=== PATIENT | female | born 1985 | race Caucasian/White ===

== ENCOUNTER → 2021-09-26 10:09 | Outpatient (CLI) | payer BC, SELFPAY | LOC: SL 10:19 | PROVIDERS: PCP Family Medicine; Visit Provider Family Medicine | DX: R53.83 Other fatigue (principal); G47.10 Hypersomnia, unspecified; R06.83 Snoring | CPT/HCPCS: G0399 ==

== ENCOUNTER → 2021-11-11 13:00 | Outpatient (CLI) | payer BC, SELFPAY | PROVIDERS: Visit Provider Specialist | DX: G47.10 Hypersomnia, unspecified (principal) | CPT/HCPCS: 36415 ==

== ENCOUNTER → 2022-02-07 20:42 | Outpatient (CLI) | payer BC, SELFPAY | PROVIDERS: PCP Family Medicine; Visit Provider Specialist | DX: G47.30 Sleep apnea, unspecified (principal); G47.9 Sleep disorder, unspecified; R06.83 Snoring | CPT/HCPCS: 95810 ==

== ENCOUNTER → 2023-06-21 09:34 | Outpatient (CLI) | payer BC, SELFPAY ==
--- NOTE | 2023-06-21 09:38 | US_ITS ---
PROCEDURE: US TRANSVAGINAL CLINICAL INDICATION: abnormal uterine bleeding COMPARISON: No exams were available for comparison FINDINGS: Transvaginal sonographic images of the pelvis were obtained. UTERUS: 7.3 cm x 5.0 cmx 3.5 cm with a combined endometrial thickness of 2.7mm. There are several nabothian cysts. The largest measures 0.88 cm. There is a posterior hyperechoic lesion in the fundal myometrium measuring 0.4 cm x 0.4 cm. Possibly a calcified fibroid. The myometrium is heterogenous. LEFT OVARY: 2.4 cmx1.7 cmx1.4cm with a volume of 3ml. RIGHT OVARY: 2.5 cm x 1.9 cmx1.8 cm with a volume of 4.4ml. There is a follicle measuring 1.1 cm x 1.1 cm x 1.1 cm. Both ovaries are seen and appear normal. Doppler flow to both ovaries are seen. There is no fluid in the cul-de-sac. IMPRESSION: 1. Anteverted uterus normal in shape and size. 2. The endometrium is thin. 3. Both ovaries are seen and appear normal. 4. No fluid in the cul-de-sac. Dictated by: Fabio Paiz MD 06/21/2023 14:20 Fabio Paiz MD in OV 06/21/2023 14:20
== END ==
LOC: RAD 09:35
PROVIDERS: PCP Family Medicine; Visit Provider Obstetrics & Gynecology
DX: N93.9 Abnormal uterine and vaginal bleeding, unspecified (principal)
CPT/HCPCS: 76830

== ENCOUNTER → 2023-07-03 16:28 | Outpatient (CLI) | payer BC, SELFPAY ==
[2023-07-03 16:19] LABS: Microscopic, Urine URINE MICROSCOPIC (MICROSCOPIC)
[2023-07-03 16:46] LABS: Appearance,Urine CLEAR (Clear); Bilirubin,Urine Negative (Negative); Blood, Urine 1+ (Negative); Color,Urine YELLOW (Yellow); Glucose,Urine (UA) Negative (Negative); Ketones,Urine Negative (Negative); Leukocyte Esterase,Urine Negative (Negative); Nitrate,Urine Negative (Negative); Protein,Urine Negative (Negative); Specific Gravity, Urine >= 1.030 (1.005-1.030); Urobilinogen,Urine 0.2 EU/dl (0.2)
[2023-07-03 16:54] LABS: RBC,Urine Occasional #/hpf (0-3); Squamous Epithelial Cell,Urine Occasional #/hpf (0-5); WBC,Urine Occasional #/hpf (0-3)
== END ==
PROVIDERS: PCP Family Medicine; Visit Provider Obstetrics & Gynecology
DX: R31.9 Hematuria, unspecified (principal)
CPT/HCPCS: 81001

== ENCOUNTER 2023-09-06 11:02 | Outpatient (CLI) | payer BC, SELFPAY ==
[2023-09-06 11:42] LABS: Basophils % 0.7 % (0.1-2.0); Eosinophils # 0.1 K/mm3 (0.0-0.4); Eosinophils % 2.2 % (0.1-12.0); Hematocrit 41.5 % (37.0-47.0); Hemoglobin 13.8 g/dL (12.2-16.2); Lymphocytes # 2.7 K/mm3 (0.7-4.5); Mean Corpuscular HGB Conc 33.2 g/dL (31.8-35.4); Mean Corpuscular Volume 96.2 fl (81-99); Mean Platelet Volume 7.7 fl (7.4-10.4); Monocytes # 0.3 K/mm3 (0.1-1.0); Monocytes % 4.7 % (1.7-9.3); Neutrophils # 2.8 K/mm3 (1.8-7.8); Neutrophils % 46.3 % (37.0-80.0); Platelet Count 276 K/mm3 (142-424); Red Blood Count 4.31 M/mm3 (4.20-5.40); Red Cell Distribution Width 12.7 % (11.5-17.5)
[2023-09-06 12:01] LABS: Chloride 104 mmol/L (98-107)
[2023-09-06 12:02] LABS: Sodium 141 mmol/L (136-145)
[2023-09-06 12:04] LABS: Alanine Aminotransferase 22 U/L (12-78); Aspartate Amino Transferase 26 U/L (14-36); Blood Urea Nitrogen 13 mg/dl (7-17); Estimated Glomerular Filt Rate 94 ml/min (>60); GFR (African American) 113 ML/MIN (>60)
[2023-09-06 12:05] LABS: Albumin Level 4.3 g/dl (3.5-5.0); Albumin/Globulin Ratio 1.7 (1.1-1.8); Alkaline Phosphatase 55 U/L (38-126); Bilirubin,Total 0.6 mg/dl (0.2-1.3); Calcium 8.7 mg/dl (8.4-10.2); Carbon Dioxide 32 mmol/L (22.0-30.0); Globulin 2.6 g/dL (1.3-3.2); Glucose 106 mg/dl (74-100); Total Protein,Serum 6.9 g/dl (6.3-8.2)
[2023-09-06 12:44] LABS: HCG,Quantitative < 2 mIU/ml (0-5.42)
== END 2023-09-06 23:59 ==
LOC: LAB 11:02
PROVIDERS: PCP Family Medicine; Visit Provider Obstetrics & Gynecology
DX: N92.0 Excessive and frequent menstruation with regular cycle (principal); N93.9 Abnormal uterine and vaginal bleeding, unspecified
CPT/HCPCS: 36415; 80053; 84702; 85025

== ENCOUNTER 2023-09-12 06:40 | Observation (INO) | payer BC, SELFPAY ==
[2023-09-11 16:37] VITALS: BMI 25.7
[2023-09-12] VITALS (26 sets, daily range): BP systolic 107–130; BP diastolic 65–85; PULSE 63–98; RESP 15–22; TEMP 36.1–43; O2SAT 93–100
[2023-09-12] MEDS: LACTATED RINGERS 1000ML 1,000 ML 100 ML IV (06:21)
--- NOTE | 2023-09-12 07:12 | EXP.ANES.CKL ---
[facility] Disclaimer: The information contained in this section may have been updated after the patient was seen, as this information can be updated by other users. Medical History Abnormal uterine bleeding (AUB) Hypersomnia Narcolepsy Surgical History History of endometrial ablation Hx of cone biopsy of cervix Hx of dilation and curettage Hx of tubal ligation Family History Mother Cancer Ovarian Other Alcoholism Coronary artery disease Diabetes Hypertension Stroke Social History Smoking Status: Current every day smoker tobacco type: cigarettes and e-cigarettes alcohol intake: never substance use type: denies use current occupational status: employed Travel in the last 8 weeks: None household members: spouse [facility] Anesthesia Checklist Patient Identification Patient Identification: Arm Band and Family Structural Data Admitted From: Home Planned Operative Procedure/s: TVH wih bilateral Salpingectmy Consent for Planned Operative Procedure(s) Verified: Yes Verified Documents: Surgical Consent and History and Physical NPO Status Verified Time NPO: 00:00 Additional verifications Patient : No Anesthesia Reactions: No Hx Blood Transfusions: No Blood Transfusion Reaction: No Cephalosporin Allergy: No Previous Colonoscopy: No Airway Assessment Mallampati Score:: Class III C-Spine Mobility Assessed: Yes TMJ Mobility Assessed: Yes Dentition: Poor Dentition Neurological Assessment Level of Consciousness: Awake, Alert, Appropriate and Follows Commands Hx Seizures: No Numbness or tingling in extremities: No Anesthesia Plan Anesthesia Risk discussed: Yes ASA Class: II Anesthesia Type: General Preoperative Comments Pre-Operative Comments: Narcolepsy Rx Aderal, Wakax, and Rtalin. Otherwise healthy.
[2023-09-12] MEDS: CEFAZOLIN SODIUM 1 GM in 0.9 % SODIUM CHLORIDE 50 ML IV (07:25)
--- NOTE | 2023-09-12 07:25 | EXP.HP ---
History of Present Illness *Admission Date: 09/12/23 *Reason for visit:: hysterectomy *History of present illness: Kim Matias is a 37yo () presenting today for total vaginal hysterectomy, Ospina culdoplasty, bilateral salpingectomy, and cystoscopy. -s/p ablation (2014), tubal, cold knife cone, D&C, and wisdom teeth extraction -Reviewed Pap smear 06/14/2023: NILM, satisfactory, negative HPV -Pt is concerned about her narcolepsy diagnosis - discussed with anesthesia -Continues to have menses twice a month. Reports it is heavy and painful. [facility] Disclaimer: The information contained in this section may have been updated after the patient was seen, as this information can be updated by other users. Medical History (Updated 09/12/23 @ 07:27 by Shantelle Kathleen DO) Abnormal uterine bleeding (AUB) Hypersomnia Narcolepsy Surgical History History of endometrial ablation Hx of cone biopsy of cervix Hx of dilation and curettage Hx of tubal ligation Family History Mother Cancer Ovarian Other Alcoholism Coronary artery disease Diabetes Hypertension Stroke Social History Smoking Status: Current every day smoker tobacco type: cigarettes and e-cigarettes alcohol intake: never substance use type: denies use current occupational status: employed Travel in the last 8 weeks: None household members: spouse Review of Systems Review of Systems Review of systems (narrative): Const: Denies headaches, fever/chills, weakness Eyes: Denies change in vision Cardiorespiratory: Denies chest pain, shortness of breath, and cough GI: Denies abdominal pain, change in BM, nausea, vomiting, constipation, diarrhea : + AUB and pelvic pain; denies genital lesions, vaginal itching and odor; denies leakage of urine, urinary urgency, frequency, dysuria and hematuria Denies depression and anxiety Denies change in libido Meds Home Medications and Allergies Home Medications Medication Instructions Recorded Confirmed Type dextroamphetamine-amphetamine 10 10 mg PO DAILY 06/12/23 09/12/23 History mg tablet dextroamphetamine-amphetamine ER 20 mg PO DAILY 06/12/23 09/12/23 History 20 mg 24hr capsule,extend release methylphenidate HCl 20 mg tablet 20 mg PO DAILY 06/12/23 09/12/23 History pitolisant 17.8 mg tablet (Wakix) 35.6 mg PO DAILY 06/12/23 09/12/23 History New Prescriptions to Start Prescriptions: Allergies Allergy/AdvReac Type Severity Reaction Status Date / Time kiwi Allergy Severe Swelling Verified 09/12/23 06:20 of Lip/Tongue/Throat Exam Data for Last 24 hours Vital signs and Labs for Last 24 Hours: Temp Pulse Resp BP Pulse Ox O2 Del Method 97.0 F L 88 18 121/75 99 Room Air 09/12/23 06:22 09/12/23 06:22 09/12/23 06:22 09/12/23 06:22 09/12/23 06:22 09/12/23 06:22 I & O for Last 24 hours: Intake & Output 09/09/23 09/10/23 09/11/23 09/12/23 23:59 23:59 23:59 23:59 Weight 164 lb Constitutional Constitutional: no acute distress *Routine HEENT Exam Head: Present normocephalic Eye: Present EOMI and PERRL ENT: Present mucous membranes moist *Routine Neck Exam Neck: Present supple; Absent lymphadenopathy *Routine Respiratory Exam Respiratory: Present CTA bilaterally *Routine Cardiovascular Exam Cardiovascular: Present RRR *Routine Abdominal Exam Abdominal: Present soft and normoactive bowel sounds; Absent tenderness *Routine Rectal Exam Rectal:: deferred *Routine Genitalia Exam Genitalia:: deferred *Routine Extremities Exam Extremities: Absent cyanosis, clubbing or edema *Routine Skin Exam Skin: Present warm; Absent rash *Routine Neurological Exam Neurological: Present alert and oriented X3 Assessment and Plan *Assessment and plan (1) Abnormal uterine bleeding (AUB): Status: Acute Category: Medical Code(s): N93.9 - Abnormal uterine and vaginal bleeding, unspecified (2) History of endometrial ablation: Status: Acute Category: Surgical Code(s): Z98.890 - Other specified postprocedural states (3) Menorrhagia: Status: Acute Qualifiers: Menorrhagia type: with irregular cycle Qualified Code(s): N92.1 - Excessive and frequent menstruation with irregular cycle Category: Medical Code(s): N92.0 - Excessive and frequent menstruation with regular cycle (4) Narcolepsy: Status: Chronic Category: Medical Code(s): G47.419 - Narcolepsy without cataplexy (5) Pelvic pain: Status: Acute Category: Medical Code(s): R10.2 - Pelvic and perineal pain Plan #Abnormal uterine bleeding #Menorrhagia #Pelvic pain #Status post endometrial ablation #History of hemorrhagic ovarian cyst -Scheduled for total vaginal hysterectomy, Ospina culdoplasty, bilateral salpingectomy, and cystoscopy. Possible total abdominal hysterectomy. -CBC, test, type and screen ordered -TVUS: Uterus: 7.3 x 5.0 x 3.5 cm. The endometrium measures 2.7 mm. Possible calcified fibroid measuring half a centimeter in the posterior endomyometrium Ovaries: The right ovary measure 2.5 x 1.9 x 1.8 cm. Volume: 4.4 mL with a 1 cm follicle. The left ovary measure 2.4 x 1.7 x 1.4 cm. With a volume of 3 mL. All no evidence of adnexal mass or free fluid in the pelvic cavity. -Infection prophylactic antibiotics ordered: Ancef 2g -Risks, benefits, and alternatives of hysterectomy reviewed with the pt. Risks including but not limited to bleeding, infection, and injury to the surrounding structures to include bowel, bladder, ureters, and neurovascular bundles were reviewed with the pt. reviewed the long-term complications of fistula formation. Hemorrhage requiring life saving blood transfusion that carries a risk of viral infection was explained to the pt and she consented to transfusion if deemed medically necessary. -Reviewed with the pt the risk that hysterectomy would not alleviate her pelvic pain. Pt voiced understanding of the risks and consented to hysterectomy. -Postoperative course reviewed with the patient and explained that she should anticipate staying in the hospital 1-2 days until meeting all DC criteria, and pain is well controlled.
[2023-09-12] MEDS: METHYLENE BLUE 0.5% 10ML AMPULE 50 MG IV (07:51)
[2023-09-12] MEDS: LIDOCAINE 1% W/EPI 1:100,000 20ML VIAL 20 ML (07:52)
--- NOTE | 2023-09-12 09:42 | P.PNANES_ITS ---
[facility] Anesthesia Record Part I Anesthesia Record I Intake, IV Amount: 1,200 Hydration: Adequate Estimated blood loss (mL): 150 Urine output (mL): 150 Blood Products used (#): none Blood Pressure: 116/76 SaO2: 95 Pulse Rate: 87 Airway Patency: Patent Respiratory Rate: 16 Temperature: 98.4 F Patient is:: Drowsy and Stable Stable to PACU at:: 09:37
[2023-09-12] MEDS: MEPERIDINE 25MG/ML 1ML SYRINGE 12.5 MG IV ×2 (09:51→10:06)
[2023-09-12] MEDS: MORPHINE 2MG/ML SYRINGE 1 MG IV ×2 (09:56→10:02)
[2023-09-12] MEDS: HYDROMORPHONE 2MG/ML SYRINGE 2 MG IV ×2 (10:12→12:10)
--- NOTE | 2023-09-12 13:15 | EXP.OP.NOTE ---
Date of procedure: 09/12/23 Pre-op Diagnosis:: 1. Abnormal uterine bleeding 2. Menorrhagia 3. Pelvic pain 4. History of endometrial ablation 5. History of hemorrhagic ovarian cyst 6. History of tubal ligation Post-op Diagnosis:: 1. Abnormal uterine bleeding 2. Menorrhagia 3. Pelvic pain 4. History of endometrial ablation 5. History of hemorrhagic ovarian cyst 6. History of tubal ligation Procedure performed:: 1. Total vaginal hysterectomy 2. Right salpingectomy 3. Ospina culdoplasty 4. Repair of incidental cystotomy 5. Cystoscopy Surgeon:: Shantelle Kathleen DO [employer](s):: Fabio Paiz MD PETROLEUM GEOLOGIST:: Other (Jaylan Shannon) Anesthesia: GETA Estimated blood loss (mL): 150 Operative findings:: Uterine EUA was significant for 6wk size uterus with regular borders at the fundus. Grade 3 uterine descent was appreciated. No gross adnexal masses were appreciated. Operative note:: Pt was taken back to the OR where GETA was obtained without difficulty. SCDs were placed and found to be working. The patient was placed in dorsal lithotomy position using yellowfin stirrups. The vagina was prepped and draped in the normal sterile fashion. An in and out catheter was used to drain the bladder and 20 mL of methylene blue normal saline were inserted into the bladder. A weighted speculum and Isai were used to visualize the cervix. Two Kaiser tenaculums were used to grasp the anterior and posterior ectocervix on the right and left. The bovie was used to make a circumferential incision at the cervicovaginal junction. A raytec was used to bluntly dissect the paracervical fascia from the cervix off the vaginal mucosa. Metzenbaum scissors and pickups were used to enter the colpotomy posteriorly and a long weighted speculum was placed. Abdominal entry was confirmed by the presence of the ovary and omentum. The left uterosacral ligament was grasped with a mohan clamp, cut, and suture ligated with 0-Vicryl. This was tagged for later incorporation to the cuff. This process was repeated on the contralateral side. The anterior vaginal tissue was further dissected off the cervix. Pickups and Metzenbaum scissors were used to make the anterior colpotomy, this was very difficult and on exploration return of blue dye was noted and incidental cystotomy was suspected. The defect was identified and closed with 2-0 Vicryl single interrupted's with a imbricating layer 2 reinforcing cover the defect. Entry was achieved more proximal, a isai retractor was placed. Entry to the abdominal cavity was confirmed with the presence of omentum and the left ovary was visualized. A Vernon clamp and 0 Vicryl suture were used to clamp cut and tie down the broad ligament, remaining proximal to the uterine body bilaterally. The cardinal ligament and uterine vessels were identified, clamped, cut, and suture-ligated bilaterally. The uterus was freed of all attachments and removed from the vagina, passed off the operative field and sent to pathology for evaluation. The bilateral fallopian tubes were difficult to visualize likely secondary to her history of the tubal. A small right tubal remnant was grasped with an Allis. A sponge stick was placed to create a safe distance from the bowel and the Enseal was used to transect the mesosalpinx. Hemostasis noted. Fallopian tube passed off the operative field. The left fallopian tube remnant was not visualized and any remaining tube was left in situ. A moist lap sponge was placed vaginally to retract the bowel. The posterior peritoneum was fixed to the posterior vaginal cuff with a running locking stitch. 0-PDS was used to place a Ospina stitch for the culdoplasty, incorporating the bilateral uterosacral ligaments. The anterior peritoneum was grasped with an Shanita clamp and pursestringed closed. The vaginal cuff was then closed with 0 Vicryl in a running locking fashion. Ospina culdoplasty was tied to suspend the apex of the vagina. Hemostasis was noted. Cystoscopy Cystoscopy was performed with a 70 degree cystoscope and distended with normal saline. Inspection of the bladder showed a normal-looking, blue dyed, smooth bladder mucosa. The injury was noted to be greater than 1 cm away from the ureter on the right. The bladder was noted to be watertight without leakage. Both ureteral meatuses were visualized and were noted to be expelling urine in routine fashion.? Cystoscope was removed. Sponge, instrument and needle counts were correct x3, per nursing. The patient was awakened from general anesthesia and transferred to the PACU in stable condition. Condition: stable Disposition: floor Specimens:: Uterine body, cervix, right fallopian tube Complications:: None
--- NOTE | 2023-09-12 13:18 | P.PNANES_ITS ---
[facility] Anesthesia Record Part I Anesthesia Record I Intake, IV Amount: 1,400 Hydration: Adequate Estimated blood loss (mL): 100 Urine output (mL): 200 Blood Products used (#): none Blood Pressure: 114/69 SaO2: 93 Pulse Rate: 86 Airway Patency: Patent Respiratory Rate: 22 Temperature: 97.2 F Patient is:: Drowsy and Stable Stable to PACU at:: 13:09
[2023-09-12 13:21] LABS: Microscopic,Cath URINE MICROSCOPIC (MICROSCOPIC)
[2023-09-12 13:23] LABS: Appearance,Urine/Cath SL CLOUDY (Clear); Bilirubin,Cath Negative (Negative); Blood, Urine/Cath 3+ (Negative); Glucose,Urine/Cath (UA) Negative (Negative); Ketones,Urine/Cath Negative (Negative); Leukocyte Esterase,Cath Negative (Negative); Nitrate,Cath Negative (Negative); PH,Urine/Cath 6.5 (5.0-8.5); Protein,Urine/Cath Negative (Negative); Specific Gravity, Urine/Cath <= 1.005 (1.005-1.030); Urobilinogen,Cath 0.2 EU/dl (0.2)
[2023-09-12 13:24] LABS: Color,Urine/Cath OTHER (Yellow)
[2023-09-12 13:35] LABS: RBC,Urine/Cath 20-50 # /hpf (0-3); Squamous Epithelial Ur./Cath Occasional #/hpf (0-5)
[2023-09-12] MEDS: KETOROLAC 30MG/ML VIAL 30 MG IV ×2 (14:26→20:22)
[2023-09-12] MEDS: LACTATED RINGERS 1000ML 1,000 ML 125 ML IV ×2 (14:26→22:55)
[2023-09-12] MEDS: ACETAMINOPHEN 500MG TAB 1000 MG PO ×2 (14:27→20:22)
[2023-09-12] MEDS: OXYCODONE 5MG IMMEDIATE RELEASE TABLET 5 MG PO (18:02)
[2023-09-12 18:51] LABS: Alanine Aminotransferase 21 U/L (12-78); Albumin Level 3.7 g/dl (3.5-5.0); Albumin/Globulin Ratio 1.4 (1.1-1.8); Alkaline Phosphatase 50 U/L (38-126); Anion Gap 9.8 mEq/L (5-15); Aspartate Amino Transferase 23 U/L (14-36); Bilirubin,Total 0.5 mg/dl (0.2-1.3); Blood Urea Nitrogen 10 mg/dl (7-17); Calcium 8.4 mg/dl (8.4-10.2); Carbon Dioxide 32 mmol/L (22.0-30.0); Chloride 99 mmol/L (98-107); Creatinine Clearance Estimated 149 mL/min (50-200); Estimated Glomerular Filt Rate 112 ml/min (>60); GFR (African American) 135 ML/MIN (>60); Globulin 2.6 g/dL (1.3-3.2); Glucose 144 mg/dl (74-100); Potassium 4.8 mmoL/L (3.5-5.1); Sodium 136 mmol/L (136-145); Total Protein,Serum 6.3 g/dl (6.3-8.2)
--- NOTE | 2023-09-12 18:59 | CT_ITS ---
PROCEDURE INFORMATION: Exam: CT Abdomen And Pelvis Without And With Contrast; Urography Exam date and time: 09/12/2023 7:36 PM Age: 37 years old Clinical indication: Abdominal pain; Prior surgery; Surgery date: Post-operative (0-2 days); Surgery type: Hysterectomy; Additional info: Bladder injury during surgery TECHNIQUE: Imaging protocol: Computed tomography of the abdomen and pelvis without and with intravenous contrast. Exam focused on the kidneys and ureters. Radiation optimization: All CT scans at this facility use at least one of these dose optimization techniques: automated exposure control; mA and/or kV adjustment per patient size (includes targeted exams where dose is matched to clinical indication); or iterative reconstruction. Contrast material: ISOVUE 370; Contrast volume: 75 ml; Contrast route: INTRAVENOUS (IV); COMPARISON: US TRANSVAGINAL 06/21/2023 9:55 AM FINDINGS: Tubes, catheters and devices: A balloon bladder catheter is present. Kidneys and ureters: There are a few tiny bilateral renal collecting system calcifications. There is a focal small right renal hypodensity that cannot be further characterized on the current examination. Statistically, this is likely a cyst. The kidneys are otherwise within range of normal. No hydronephrosis. Delayed images show no evidence of dayan vesicular contrast extravasation. The ureters describe a normal course to the bladder without leak. Urinary bladder: The bladder is decompressed. There is a small amount of intraluminal bladder gas consistent with instrumentation. No evidence for bladder leak. Lungs: Nonspecific mild bibasilar streaky opacities suggest atelectasis in this of immediate postoperative setting. Pleural spaces: There are no pleural effusions. Heart: The visualized portions of the heart are unremarkable. Liver: There is minor fullness to the intrahepatic biliary radicles. The liver is otherwise within range of normal. Gallbladder and bile ducts: The gallbladder is contracted/decompressed. No significant extrahepatic biliary ductal dilatation. Pancreas: The pancreas is normal. Spleen: The spleen demonstrates punctate calcifications, consistent with remote granulomatous organism exposure. Adrenals: The adrenal glands are normal. Stomach and bowel: Lack of gastrointestinal contrast limits evaluation of bowel. The colon is normal. Unopacified loops of small bowel are within range of normal. There is a moderate degree of residual ingested material within the stomach. Stomach is otherwise within range of normal. The duodenum appears normal. Appendix: A normal appendix is identified. Intraperitoneal space: There is a small amount of pneumoperitoneum likely due to recent postoperative state. There is a small amount of nonspecific pelvic free fluid present. Lymph nodes: No enlarged lymph nodes. Vasculature: There are a few benign phleboliths in the pelvis. Reproductive: The uterus is not seen consistent with provided history of hysterectomy. No adnexal masses. Bones/joints: There is no evidence of acute fracture. Soft tissues: There is mild fat stranding involving the soft tissues anterior to the pubic symphysis which is nonspecific may reflect edema/inflammation or postsurgical change.. Correlate clinically. No focal soft tissue hematomas. No significant soft tissue edema. Para there are several osseous sclerotic foci involving the osseous structures, predominantly involving the pelvis which are nonspecific but could reflect multiple bone islands. Correlate clinically. Difficult to entirely exclude osseous metastases in the appropriate clinical setting. Other findings: There is no evidence of p significant ericardial fluid collections. No aneurysm. IMPRESSION: 1. Status post hysterectomy. Small amount of free air may be on the basis of recent postoperative state. 2. Small amount of pelvic free fluid. 3. No evidence of bladder leak on current exam. 4. A few tiny bilateral renal collecting system calcifications. COMMENTS: Consistent with the [employer]'s Incidental Findings Committee white paper (J Am David Radiol 2018): Any incidental renal lesion less than 1 cm or classified as too small to characterize, or any incidental cystic renal lesion characterized as simple-appearing, is likely benign. No follow-up imaging is recommended for these lesions per consensus recommendations based on imaging criteria.
--- NOTE | 2023-09-12 19:20 | PC.NURSE ---
All care and documentation by Cassidy Bond RN was completed under my direct supervision.
--- NOTE | 2023-09-12 19:37 | PC.NURSE ---
[address] by radiology staff.
[2023-09-12] MEDS: SODIUM CHLORIDE 0.9% 10ML SYR (RAD ONLY) 10 ML IV (19:44)
[2023-09-12] MEDS: IOPAMIDOL-370 (76%);100ML BOTTLE 75 ML IV (19:44)
--- NOTE | 2023-09-12 20:08 | PC.NURSE ---
2000 Pt is back room from completing CT in radiology department.
--- NOTE | 2023-09-12 20:38 | PC.NURSE ---
2014 Dr. Kathleen called and requested to be notified when CT had been read. RN stated she would keep checking and let her know when it had resulted. 2034 Dr. Kathleen called and stated that the CT had been read and was normal. No new orders received.
[2023-09-13] MEDS: ACETAMINOPHEN 500MG TAB 1000 MG PO ×3 (02:10→13:49)
[2023-09-13] MEDS: KETOROLAC 30MG/ML VIAL 30 MG IV ×3 (02:11→13:49)
[2023-09-13] MEDS: HYDROMORPHONE 2MG/ML SYRINGE 1 MG IV ×2 (02:18→06:29)
[2023-09-13 04:39] VITALS: BP 109/65; PULSE 75; RESP 16; TEMP 36.7; O2SAT 96
--- NOTE | 2023-09-13 04:40 | PC.NURSE ---
Patient is resting in bed. Reassessment done. Bilateral lung sounds are clear throughout, respirations even and unlabored. Bowel sounds active in all 4 quadrants. No swelling noted. Guerra catheter draining appropriately. IV infusing well and site is unremarkable. Patient states she has no pain and is comfortable at the present time. No needs noted.
[2023-09-13 06:55] LABS: Basophils % 0.3 % (0.1-2.0); Eosinophils % 0.3 % (0.1-12.0); Hematocrit 37.2 % (37.0-47.0); Hemoglobin 12.3 g/dL (12.2-16.2); Lymphocytes # 2.7 K/mm3 (0.7-4.5); Lymphocytes % 24.7 % (10-50); Mean Corpuscular HGB Conc 33.2 g/dL (31.8-35.4); Mean Corpuscular Hemoglobin 31.5 pg (27.0-31.2); Mean Corpuscular Volume 94.8 fl (81-99); Mean Platelet Volume 7.7 fl (7.4-10.4); Monocytes # 0.4 K/mm3 (0.1-1.0); Monocytes % 3.5 % (1.7-9.3); Neutrophils # 7.7 K/mm3 (1.8-7.8); Neutrophils % 71.2 % (37.0-80.0); Platelet Count 281 K/mm3 (142-424); Red Blood Count 3.93 M/mm3 (4.20-5.40); Red Cell Distribution Width 12.7 % (11.5-17.5); White Blood Count 10.8 K/mm3 (4.8-10.8)
[2023-09-13 07:11] LABS: Alanine Aminotransferase 17 U/L (12-78); Albumin Level 3.2 g/dl (3.5-5.0); Albumin/Globulin Ratio 1.3 (1.1-1.8); Alkaline Phosphatase 54 U/L (38-126); Anion Gap 9.6 mEq/L (5-15); Aspartate Amino Transferase 22 U/L (14-36); Bilirubin,Total 0.3 mg/dl (0.2-1.3); Blood Urea Nitrogen 9 mg/dl (7-17); Carbon Dioxide 30 mmol/L (22.0-30.0); Chloride 102 mmol/L (98-107); Creatinine Clearance Estimated 179 mL/min (50-200); Estimated Glomerular Filt Rate 138 ml/min (>60); GFR (African American) 167 ML/MIN (>60); Globulin 2.5 g/dL (1.3-3.2); Glucose 95 mg/dl (74-100); Potassium 3.6 mmoL/L (3.5-5.1); Sodium 138 mmol/L (136-145); Total Protein,Serum 5.7 g/dl (6.3-8.2)
--- NOTE | 2023-09-13 07:16 | EXP.ANES.II ---
[facility] Anesthesia Record Part II Anesthesia Record Part II Discharge Time: 10:30 Destination: Surgical Day Care (OP Surgery) PACU nurse assessment reviewed?: Yes Patient Condition:: Good Anesthesia Complications:: None Swallowing reflex intact?: Yes Airway Patency: Patent Cyanosis?: No Blood Pressure: 128/74 SaO2: 97 Respiratory Rate: 20 Pulse Rate: 84 Temperature: 97.8 F Mental Status: Alert & Oriented Pain level:: 5 Nausea and/or vomitting:: None Intake, IV Amount: 0 Hydration: Adequate
[2023-09-13 07:18] VITALS: BP 128/74; PULSE 84; RESP 20; TEMP 36.6; O2SAT 97
[2023-09-13 08:15] VITALS: BP 116/84; PULSE 95; RESP 18; TEMP 36.6; O2SAT 98
[2023-09-13] MEDS: LACTATED RINGERS 1000ML 1,000 ML 125 ML IV (08:59)
[2023-09-13] MEDS: OXYCODONE 5MG IMMEDIATE RELEASE TABLET 5 MG PO (11:12)
--- NOTE | 2023-09-13 14:16 | EXP.DC.SUM ---
General Admission date:: 09/12/23 Discharge date: 09/13/23 HPI HPI HPI: Kim Matias is a 37yo () presenting today for total vaginal hysterectomy, Ospina culdoplasty, bilateral salpingectomy, and cystoscopy. -s/p ablation (2014), tubal, cold knife cone, D&C, and wisdom teeth extraction -Reviewed Pap smear 06/14/2023: NILM, satisfactory, negative HPV -Pt is concerned about her narcolepsy diagnosis - discussed with anesthesia -Continues to have menses twice a month. Reports it is heavy and painful. Hospital Course Hospital Course Hospital Course: Kim Matias is a 37-year-old postop day 1 from a total vaginal hysterectomy, right salpingectomy, and an incidental cystotomy that was repaired at the time of surgery. Overnight the patient had a significant amount of postop pain. A CT scan was ordered to evaluate the right ureter and bladder repair. CT was negative for any type of ureteral injury in the bladder repair appeared to be intact and holding well. This morning the patient's pain was much better controlled. She will be discharged home and Perez catheter will be left in place x 2 weeks. She will follow-up in my office at 1 week postoperatively. Routine discharge structures reviewed with patient in detail and she voiced understanding. All questions and concerns were addressed to her satisfaction. Exam Data for Last 24 hours Vital signs and Labs for Last 24 Hours: Temp Pulse Resp BP Pulse Ox O2 Del Method O2 Flow Rate 97.8 F 95 H 18 116/84 98 Room Air 2 09/13/23 08:15 09/13/23 08:15 09/13/23 08:15 09/13/23 08:15 09/13/23 08:15 09/13/23 14:00 09/12/23 18:00 Laboratory Results - last 24 hr 09/12/23 18:13: Sodium 136, Potassium 4.8, Chloride 99, Carbon Dioxide 32 H, Anion Gap 9.8, BUN 10, Creatinine 0.60, Estimated Creat Clear 149, Estimated GFR 112, Est GFR ( Amer) 135, Glucose 144 H, Calcium 8.4, Total Bilirubin 0.5, AST 23, ALT 21, Alkaline Phosphatase 50, Total Protein 6.3, Albumin 3.7, Globulin 2.6, Albumin/Globulin Ratio 1.4 09/13/23 05:39: WBC 10.8, RBC 3.93 L, Hgb 12.3, Hct 37.2, MCV 94.8, MCH 31.5 H, MCHC 33.2, RDW 12.7, Plt Count 281, MPV 7.7, Neut % (Auto) 71.2, Lymph % (Auto) 24.7, Barron % (Auto) 3.5, Eos % (Auto) 0.3, Baso % (Auto) 0.3, Neut # (Auto) 7.7, Lymph # (Auto) 2.7, Barron # (Auto) 0.4, Eos # (Auto) 0.0, Baso # (Auto) 0.0, Sodium 138, Potassium 3.6 D, Chloride 102, Carbon Dioxide 30, Anion Gap 9.6, BUN 9, Creatinine 0.50 L, Estimated Creat Clear 179, Estimated GFR 138, Est GFR ( Amer) 167 D, Glucose 95 D, Calcium 8.0 L, Total Bilirubin 0.3, AST 22, ALT 17, Alkaline Phosphatase 54, Total Protein 5.7 L, Albumin 3.2 L D, Globulin 2.5, Albumin/Globulin Ratio 1.3 I & O for Last 24 hours: Intake & Output 09/10/23 09/11/23 09/12/23 09/13/23 23:59 23:59 23:59 23:59 Intake Total 2600 / 2600 1861 / 1861 Output Total 800 / 800 700 / 700 Balance 1800 / 1800 1161 / 1161 Weight 164 lb Constitutional Constitutional: no acute distress *Routine HEENT Exam Head: Present normocephalic Eye: Present EOMI and PERRL ENT: Present mucous membranes moist *Routine Neck Exam Neck: Present supple; Absent lymphadenopathy *Routine Respiratory Exam Respiratory: Present CTA bilaterally *Routine Cardiovascular Exam Cardiovascular: Present RRR *Routine Abdominal Exam Abdominal: Present soft and normoactive bowel sounds; Absent tenderness *Routine Exam Comments: Indwelling Perez catheter in place. Hematuria noted *Routine Extremities Exam Extremities: Absent cyanosis, clubbing or edema *Routine Skin Exam Skin: Present warm; Absent rash *Routine Neurological Exam Neurological: Present alert and oriented X3 Results Data Completed and Pending Labs on day of discharge: Labs from last 24 hours 09/13/23 09/12/23 05:39 18:13 WBC 10.8 RBC 3.93 L Hgb 12.3 Hct 37.2 MCV 94.8 MCH 31.5 H MCHC 33.2 RDW 12.7 Plt Count 281 MPV 7.7 Neut % (Auto) 71.2 Lymph % (Auto) 24.7 Barron % (Auto) 3.5 Eos % (Auto) 0.3 Baso % (Auto) 0.3 Neut # (Auto) 7.7 Lymph # (Auto) 2.7 Barron # (Auto) 0.4 Eos # (Auto) 0.0 Baso # (Auto) 0.0 Sodium 138 136 Potassium 3.6 D 4.8 Chloride 102 99 Carbon Dioxide 30 32 H Anion Gap 9.6 9.8 BUN 9 10 Creatinine 0.50 L 0.60 Estimated Creat Clear 179 149 Estimated GFR 138 112 Est GFR ( Amer) 167 D 135 Glucose 95 D 144 H Calcium 8.0 L 8.4 Total Bilirubin 0.3 0.5 AST 22 23 ALT 17 21 Alkaline Phosphatase 54 50 Total Protein 5.7 L 6.3 Albumin 3.2 L D 3.7 Globulin 2.5 2.6 Albumin/Globulin Ratio 1.3 1.4 DS: Diagnosis Discharge Diagnosis (1) Abnormal uterine bleeding (AUB): Status: Inactive Code(s): N93.9 - Abnormal uterine and vaginal bleeding, unspecified (2) History of endometrial ablation: Status: Inactive Code(s): Z98.890 - Other specified postprocedural states (3) Menorrhagia: Status: Inactive Code(s): N92.0 - Excessive and frequent menstruation with regular cycle Qualifiers: Menorrhagia type: with irregular cycle Qualified Code(s): N92.1 - Excessive and frequent menstruation with irregular cycle (4) Narcolepsy: Status: Chronic Code(s): G47.419 - Narcolepsy without cataplexy (5) Pelvic pain: Status: Inactive Code(s): R10.2 - Pelvic and perineal pain (6) H/O hysterectomy for benign disease: Status: Acute Code(s): Z90.710 - Acquired absence of both cervix and uterus Problem details: Doing well Discharged with pain management Continue indwelling catheter Patient is ambulating, voiding, tolerating p.o. well Follow-up in 1 week Meds Home Medications and Allergies Home Medications Medication Instructions Recorded Confirmed Type dextroamphetamine-amphetamine 10 10 mg PO DAILY 06/12/23 09/12/23 History mg tablet dextroamphetamine-amphetamine ER 20 mg PO DAILY 06/12/23 09/12/23 History 20 mg 24hr capsule,extend release methylphenidate HCl 20 mg tablet 20 mg PO DAILY 06/12/23 09/12/23 History pitolisant 17.8 mg tablet (Wakix) 35.6 mg PO DAILY 06/12/23 09/12/23 History acetaminophen 500 mg tablet 500 mg PO Q6H PRN fever #30 tabs 09/13/23 Rx ferrous sulfate 325 mg (65 mg 325 mg PO DAILY #30 tabs 09/13/23 Rx iron) tablet,delayed release ibuprofen 800 mg tablet 800 mg PO Q8H PRN pain #60 tabs 09/13/23 Rx nitrofurantoin 100 mg PO DAILY 14 days #14 caps 09/13/23 Rx monohydrate/macrocrystals 100 mg capsule (Macrobid) oxycodone 5 mg tablet 5 mg PO Q8H PRN pain #25 tabs 09/13/23 Rx sennosides 8.6 mg tablet (Senna 8.6 mg PO BIDP PRN Constipation 09/13/23 Rx Lax) #60 tabs simethicone 125 mg tablet 125 mg PO DAILY PRN abdominal 09/13/23 Rx distention #60 tabs New Prescriptions to Start Prescriptions: acetaminophen Shantelle Kathleen ferrous sulfate Shantelle Kathleen ibuprofen Shantelle Kathleen nitrofurantoin monohyd/m-cryst [Macrobid] Shantelle Kathleen oxycodone Shantelle Kathleen sennosides [Senna Lax] Shantelle Kathleen simethicone Shantelle Kathleen Allergies Allergy/AdvReac Type Severity Reaction Status Date / Time kiwi Allergy Severe Swelling Verified 09/12/23 06:20 of Lip/Tongue/Throat Discharge Plan Disposition Patient Disposition: Home, Self-Care Condition: Good Follow up Plan Follow up with: Shantelle Kathleen DO [Staff Physician] - 09/18/23 11:15 am Prescriptions/Medication Reconciliation: New sennosides [Senna Lax] 8.6 mg Tablet 8.6 mg PO BIDP PRN (Reason: Constipation) Qty: 60 2RF ibuprofen 800 mg tablet 800 mg PO Q8H PRN (Reason: pain) Qty: 60 2RF acetaminophen 500 mg tablet 500 mg PO Q6H PRN (Reason: fever) Qty: 30 3RF simethicone 125 mg tablet 125 mg PO DAILY PRN (Reason: abdominal distention) Qty: 60 2RF ferrous sulfate 325 mg (65 mg iron) tablet,delayed release (DR/EC) 325 mg PO DAILY Qty: 30 3RF oxycodone 5 mg tablet 5 mg PO Q8H PRN (Reason: pain) Qty: 25 0RF nitrofurantoin monohyd/m-cryst [Macrobid] 100 mg capsule 100 mg PO DAILY 14 Days Qty: 14 0RF Rx Instructions: must administer with a meal/food Continued dextroamphetamine-amphetamine 20 mg capsule,extended release 24hr 20 mg PO DAILY Patient Comments: TAKE 1 CAPSULE BY MOUTH ONCE DAILY FOR 30 DAYS dextroamphetamine-amphetamine 10 mg tablet 10 mg PO DAILY Patient Comments: TAKE 1 TABLET BY MOUTH ONCE DAILY methylphenidate HCl 20 mg tablet 20 mg PO DAILY Patient Comments: TAKE 1 TABLET BY MOUTH ONCE DAILY Wakix 17.8 mg tablet 35.6 mg PO DAILY Problem Reconciliation Problems Reviewed?: Yes Patient Discharge Instructions ACTIVITY: Ambulate as tolerated, Limited activity and No heavy lifting DIET: regular diet Additional Instructions: You had a total vaginal hysterectomy and right salpingectomy. This means that your uterus, cervix, and fallopian tube were removed. The top of your vagina is closed with dissolvable sutures. Removing your fallopian tubes decreases your lifetime risk of ovarian cancer. During your surgery you had an incidental cystotomy that was repaired without difficulty. You will keep your perez catheter for 2 weeks and we will do imaging and a voiding trial at time of removal. You will take a daily antibiotic to decrease you risk of UTI. You will follow-up in office for a postop visit at 1, 2, and 6 weeks. At your 6-week postop appointment you will have a pelvic exam to ensure your cuff is healing well. Activity: - No lifting more than 10 lbs for 6 weeks. - No driving while you are taking narcotic pain medication. Wound care - Keep your wound clean and dry, ok to wash with soap and water but pat thoroughly dry. You will want to shower daily. Please do not put soap in your vagina. Medications: - Acetaminophen (Tylenol) for pain/discomfort. Please take 500 mg to 1000 mg of Tylenol every 4-6 hours for the first 2 to 3 days to keep your postoperative pain under control. - Ibuprofen (a nonsteroidal anti-inflammatory) for pain. Please take the ibuprofen scheduled for the first 2-3 days as this will help control your pain - Oxycodone (a narcotic pain medication) use the narcotic pain medication for breakthrough or severe pain. You will want to stop the narcotic pain medication first. Narcotic pain medication can be habit forming so please only use this medication if you need it. - Senna (a stool softener) use this medication for constipation as needed. Narcotics can increase your risk for constipation - Simethicone: a gas medication for bloating and gas pain you may experience in the next 1-2 weeks. Please call the office or return to the ER if you have any of the followin. bleeding more than 1 pad an hour for 2 hours 2. pain that does not respond to your narcotic pain medication 3. dizziness or lightheadedness such that you lose consciousness Questions or concerns: It is my privilege to be your doctor. Please let me know if you have other questions or concerns. Shantelle Kathleen DO [facility] [place], [place] [address] Patient Instructions: How to Care for Your Perez Catheter -- Female, DI for Vaginal Hysterectomy Providers Primary Care Provider: Filippo Barreto Admit Provider: Shantelle Kathleen Attending Provider: Shantelle Kathleen
== END 2023-09-13 16:10 | disposition home or self-care (01) ==
LOC: OB 06:40
PROVIDERS: Admitting Provider Obstetrics & Gynecology; PCP Family Medicine; Visit Provider Obstetrics & Gynecology
PROC: (CPT 58262; principal; 2023-09-12 07:30)
DX: N92.1 Excessive and frequent menstruation with irregular cycle (principal); R10.2 Pelvic and perineal pain
CPT/HCPCS: 58262; 57268; 52000; 36415; 74178; 80053; 81001; 85025; 96374; G0378; J2405; Q9967

== ENCOUNTER 2023-09-26 08:07 | Outpatient (CLI) | payer BC, SELFPAY ==
--- NOTE | 2023-09-26 08:08 | FL_ITS ---
FINAL REPORT CLINICAL HISTORY: . clipped bladder during surgery sep 12 150 ml of cystografin 30% filled baldder with cathader 857.86 dap .40 fluoro time FINDINGS: CYSTOGRAM HISTORY: Acute bladder injury. PROCEDURE: was introduced in a retrograde fashion into the urinary bladder by gravity drip. 7 fluoroscopic spot and overhead films were obtained. FINDINGS: [employer] film is normal. The urinary bladder distends appropriately. There is no ureteral reflux of contrast. No extravasation of contrast was identified to indicate leak. There is no postvoid residual. Fluoro time: 40 seconds DAP: 857.86 uGy.m2 IMPRESSION: Normal cystogram.. Films reviewed , interpreted and dictated by Dr. Garcia. Transcribed by Kody Silva PA-C. Reviewed, Interpreted and Dictated by Maco Garcia III, MD Transcribed by MINOR Mariano Authenticated and [facility]
[2023-09-26] MEDS: SODIUM CHLORIDE 0.9% 10ML SYR (RAD ONLY) 10 ML IV (08:56)
[2023-09-26] MEDS: DIATRIZOATE MEGLUMINE 18% 300ML BOTTLE 300 ML IJ (12:35)
== END 2023-09-26 23:59 ==
LOC: RAD 08:08
PROVIDERS: PCP Family Medicine; Visit Provider Obstetrics & Gynecology
DX: N99.71 Accidental puncture and laceration of a genitourinary system organ or structure during a genitourinary system procedure (principal); S37.20XA Unspecified injury of bladder, initial encounter
CPT/HCPCS: 74455; Q9958

== ENCOUNTER 2024-10-18 11:06 | Emergency (ER) | payer BC, SELFPAY ==
[2024-10-18] VITALS (8 sets, daily range): BP systolic 116–138; BP diastolic 70–94; PULSE 81–115; RESP 18–20; TEMP 36.8–36.9; O2SAT 93–100; BMI 34.2
--- NOTE | 2024-10-18 11:20 | ED_ITS ---
Discharge Plan Disposition Patient Disposition: Home, Self-Care Condition: Good Prescriptions Prescriptions: New prednisone 20 mg tablet 40 mg PO DAILY 4 Days Qty: 8 0RF Rx Instructions: Start 10/19/2024 cetirizine [Zyrtec] 10 mg tablet 10 mg PO DAILY Qty: 30 0RF triamcinolone acetonide 0.1 % cream 1 applic topical TID PRN (Reason: itching) Qty: 80 0RF No Action ferrous sulfate 325 mg (65 mg iron) tablet,delayed release (DR/EC) 325 mg PO DAILY Qty: 30 3RF Referrals Follow up/Referrals: Filippo Barreto MD [Primary Care Provider] - See instructions Activity Restrictions/Add. Instructions Additional Instructions/Restrictions: You were evaluated in the emergency department today. Please merchandise pickup/receiving associate your prescription for steroids and take the full course as prescribed. Take Zyrtec as well. Take Benadryl every 8 hours as needed for itching, but do not drive as it may be sedating. Follow-up with your primary care provider. Return to the emergency department for new or worsening symptoms Clinical Impressions Clinical Impression: Urticaria Stand Alone Forms Stand Alone Forms: Work/School Release Instructions Patient Instructions: DI for Hives Print Language Print Language: Martiniquais Discharge ED Provider: Lisbet Montoya General Adult HPI General Chief complaint: Skin/Abscess/Foreign Body Stated complaint: hives on body, sore throat Time Seen by Provider: 10/18/24 11:14 Mode of Arrival: Ambulatory Source of Information: Patient Limitations: No Limitations Description of Symptoms (Recalled from ER Triage Doc. by RN): pt is experiencing hives, her throat is sore. started last night. History of Present Illness HPI narrative: This patient is a 39-year-old female presenting to the emergency department for evaluation with concern for itchy rash and sore throat. Patient reports that last night, she was cleaning out the cellar and is not sure what she might of gotten into, but she states that her skin started itching all over. She also notes that her throat is irritated. No fevers, cough, congestion, abdominal pain, vomiting, changes in bowel movements, or other concerns. She is allergic to kiwi but denies any other known allergies. No other new recent exposures. Related Data Previous Rx's ?Medication ?Instructions ?Recorded ferrous sulfate 325 mg (65 mg 325 mg PO DAILY #30 tabs 01/25/24 iron) tablet,delayed release cetirizine 10 mg tablet (Zyrtec) 10 mg PO DAILY #30 tabs 10/18/24 prednisone 20 mg tablet 40 mg (2 x 20 mg) PO DAILY 4 days 10/18/24 #8 tabs triamcinolone acetonide 0.1 % 1 applic topical TID PRN itching 10/18/24 topical cream #80 grams Allergies Allergy/AdvReac Type Severity Reaction Status Date / Time kiwi Allergy Severe Swelling Verified 10/24/23 09:38 of Lip/Tongue/Throat [facility] Disclaimer: The information contained in this section may have been updated after the patient was seen, as this information can be updated by other users. Medical History Pelvic pain Narcolepsy Menorrhagia Abnormal uterine bleeding (AUB) Hypersomnia Surgical History History of salpingectomy History of hysterectomy H/O left breast biopsy Hx of dilation and curettage Hx of cone biopsy of cervix History of endometrial ablation Hx of tubal ligation Family History Mother Cancer Other Alcoholism Coronary artery disease Diabetes Hypertension Stroke Social History Smoking Status: Current every day smoker tobacco type: cigarettes and e-ci garettes alcohol intake: never substance use type: denies use current occupational status: employed Travel in the last 8 weeks: None household members: spouse Have you lived/traveled outside US in past 30 days?: No Contact w/someone who lives/traveled outside US past 30 days?: No Exposure to someone with infectious disease in past 14 days?: No Do you have a fever (greater than 100.4 F or 38 C)?: No Have you tested positive for COVID-19: No Exposed to someone with COVID-19 in past 14 days?: No Do you have a sore throat?: No Do you have a cough?: No Do you have any weakness?: No Do you have any diarrhea?: No Are you experiencing any unusual bleeding?: No Do you have any muscle aches/pain?: No Do you have any abdominal pain?: No Are you experiencing loss of taste or smell?: No Other Medical History Have you received the Flu Vaccine for this season: No Have you received the Pneumonia Vaccine: No ROS Obtained: Yes All systems reviewed & no additional complaints except as documented Physical Exam General General appearance: alert and in no apparent distress Head Head exam: atraumatic and normocephalic Eye Eye exam: Present normal appearance, PERRL and EOMI ENT ENT exam: Present normal exam, normal oropharynx, mucous membranes moist and normal external ear exam Neck Neck exam: Present normal inspection, full ROM and trachea midline; Absent tenderness Chest Chest inspection: Present normal inspection and symmetric chest wall rise; Absent tenderness Respiratory Respiratory exam: Present normal lung sounds bilaterally; Absent respiratory distress, wheezes, stridor or accessory muscle use Cardiovascular Cardiovascular exam: Present regular rate and normal rhythm Abdominal Exam Abdominal exam: Present soft; Absent distention, tenderness or guarding Extremities Exam Extremities exam: Present normal inspection, full ROM and normal capillary refill; Absent tenderness or edema Back Exam Back exam: Present normal inspection and full ROM; Absent tenderness Neurological Exam Neurological exam: Present alert, oriented X3, CN II-XII intact and normal gait; Absent motor sensory deficit Psychiatric Psychiatric exam: Present normal affect and normal mood Skin Skin exam: Present rash (Urticarial rash) Medical Decision Making Medical Records Medical records reviewed: Yes I reviewed the patient's medical records. Screening: Per USPSTF and CDC recommendations, given the prevalence of disease in our region, it is our hospital?s policy to screen for HIV and viral Hepatitis for all patients aged 18 and over and those with ongoing risk factors. Jhony Inquiry Pt receiving controlled substance: No Vital Signs: 10/18/24 11:07 10/18/24 11:10 10/18/24 11:30 Temperature 98.3 F Temperature Source Oral Pulse Rate 98 H 106 H Pulse Rate [Right] 115 H Respiratory Rate 20 Blood Pressure 138/94 H 123/73 Blood Pressure [Right Arm] 138/94 H Blood Pressure Mean Blood Pressure Mean [Right Arm] 108 02 Sat by Pulse Oximetry 100 97 93 L Oxygen Delivery Method Room Air Room Air Room Air 10/18/24 12:00 10/18/24 12:24 10/18/24 13:02 Temperature Temperature Source Pulse Rate 83 97 H 95 H Pulse Rate [Right] Respiratory Rate Blood Pressure 117/72 118/73 116/80 Blood Pressure [Right Arm] Blood Pressure Mean Blood Pressure Mean [Right Arm] 02 Sat by Pulse Oximetry 99 99 100 Oxygen Delivery Method Room Air Room Air Room Air 10/18/24 13:30 10/18/24 14:36 Temperature 98.4 F Temperature Source Pulse Rate 95 H 81 Pulse Rate [Right] Respiratory Rate 18 18 Blood Pressure 117/70 137/77 Blood Pressure [Right Arm] Blood Pressure Mean 83 Blood Pressure Mean [Right Arm] 02 Sat by Pulse Oximetry 99 Oxygen Delivery Method Lab Data Lab results reviewed: Yes I reviewed the patient's lab results. Orders (Tests/Meds): ED MEDICATIONS Discontinued Medications Generic Name Dose Route Start Last Admin Trade Name Freq PRN Reason Stop Dose Admin Diphenhydramine HCl 50 mg 10/18/24 11:17 10/18/24 11:22 Diphenhydramine 25mg Capsule PO 10/18/24 11:18 50 mg ONCE ONE Administration Famotidine 20 mg 10/18/24 11:17 10/18/24 11:22 Famotidine 20mg Tablet PO 10/18/24 11:18 20 mg ONCE ONE Administration Ondansetron HCl 4 mg 10/18/24 11:20 10/18/24 11:23 Ondansetron 4mg Odt SL 10/18/24 11:21 4 mg ONCE ONE Administration Prednisone 60 mg 10/18/24 11:17 10/18/24 11:23 Prednisone 20mg Tab PO 10/18/24 11:18 60 mg ONCE ONE Administration Medical Decision Narrative: In summary, this patient is a 39-year-old female presenting to the Emergency Department for evaluation of itchy rash and sore throat. Differential diagnoses considered include but are not limited to allergic reaction, viral exanthem, contact dermatitis, pharyngitis, anaphylaxis. Ruling out the most morbid conditions drove assessment. On exam, the patient is very well-appearing. Her posterior oropharynx is normal with no swelling. No mucosal lesions or blistering. She has an urticarial rash that is disseminated, worse on her torso. She is afebrile. She is mildly tachycardic but otherwise vitals are normal on cardiac telemetry. No stridor, wheezing, or abdominal symptoms to suggest anaphylaxis. I feel she is likely having some sort of allergic reaction without signs of anaphylaxis. She was given oral Benadryl, prednisone, Pepcid, and Zofran for symptomatic improvement. Will continue to monitor and reassess for symptomatic improvement. On subsequent reassessment, she states she is not really feeling better at this time, but she has had no decompensation and is not worse. Her urticarial rash is not significantly improved but has not worsened. She has no sloughing, bullae, or mucosal involvement. No evidence of anaphylaxis. Given this, I feel that she is appropriate for discharge home with prescriptions for prednisone, Zyrtec, triamcinolone, instructions for supportive management. She was given very strict return precautions and was discharged after all questions were answered Critical Care Critical Care Time Critical Care Time: No
[2024-10-18] MEDS: diphenhydrAMINE 25MG CAPSULE 50 MG PO (11:22)
[2024-10-18] MEDS: FAMOTIDINE 20MG TABLET 20 MG PO (11:22)
[2024-10-18] MEDS: predniSONE 20MG TAB 60 MG PO (11:23)
[2024-10-18] MEDS: ONDANSETRON 4MG ODT 4 MG SL (11:23)
== END 2024-10-18 14:37 | disposition home or self-care (01) ==
PROVIDERS: Emergency Provider Emergency Medicine; PCP Family Medicine
DX: L50.9 Urticaria, unspecified (principal)
CPT/HCPCS: 99283; Q0162

== ENCOUNTER 2024-11-26 06:55 | Outpatient (CLI) | payer BC, SELFPAY ==
--- NOTE | 2024-11-26 06:59 | CT_ITS ---
FINAL REPORT TECHNIQUE: Axial images through the pelvis were performed by computed tomography. Reconstructed images were obtained and reviewed. This study was performed with techniques to keep radiation doses as low as reasonably achievable, (ALARA). Individualized dose reduction techniques using automated exposure control or adjustment of mA and/or kV according to the patient's size were employed. CLINICAL HISTORY: BONE ISLAND COMPARISON: 09/12/2023 FINDINGS: There is a 7 mm sclerotic lesion in the left sacrum which is stable compatible with bone island. Multiple sclerotic densities in the left iliac wing are also stable, probably bone islands as well. There are small sclerotic densities in the left ischial tuberosity and right acetabular region which are stable. No lytic or destructive lesions identified. There is no adenopathy. IMPRESSION: Numerous subcentimeter sclerotic lesions in the bony pelvis. Findings are stable, likely small bone islands. Osteopoikilosis could have a similar appearance. If there is history of primary neoplasm, treated metastases could have a similar appearance. Reviewed, Interpreted and Dictated by Bayron Nelson MD Transcribed by Alisha Carrillo Authenticated and . [facility]
== END 2024-11-26 23:59 | disposition home or self-care (01) ==
LOC: RAD 06:56
PROVIDERS: PCP Family Medicine; Visit Provider Family Medicine
DX: M89.8X8 Other specified disorders of bone, other site (principal)
CPT/HCPCS: 72192

== ENCOUNTER 2024-12-02 11:10 | Outpatient (CLI) | payer BC, SELFPAY ==
[2024-12-02 12:08] LABS: Basophils % 0.5 % (0.1-2.0); Eosinophils # 0.1 K/mm3 (0.0-0.4); Eosinophils % 2.2 % (0.1-12.0); Hematocrit 38.9 % (37.0-47.0); Hemoglobin 13.1 g/dL (12.2-16.2); Lymphocytes # 1.6 K/mm3 (0.7-4.5); Lymphocytes % 28.1 % (10-50); Mean Corpuscular HGB Conc 33.7 g/dL (31.8-35.4); Mean Corpuscular Hemoglobin 31.3 pg (27.0-31.2); Mean Corpuscular Volume 93.1 fl (81-99); Mean Platelet Volume 9.5 fl (7.4-10.4); Monocytes # 0.3 K/mm3 (0.1-1.0); Monocytes % 4.9 % (1.7-9.3); Neutrophils # 3.5 K/mm3 (1.8-7.8); Neutrophils % 63.9 % (37.0-80.0); Nucleated Red Blood Cells # 0 10^3/uL; Nucleated Red Blood Cells % 0 %; Platelet Count 324 K/mm3 (142-424); Red Blood Count 4.18 M/mm3 (4.20-5.40); Red Cell Distribution Width 12.6 % (11.5-17.5); White Blood Count 5.5 K/mm3 (4.8-10.8)
[2024-12-02 12:33] LABS: Alanine Aminotransferase 19 U/L (12-78); Albumin Level 4.3 g/dl (3.5-5.0); Albumin/Globulin Ratio 1.4 (1.1-1.8); Alkaline Phosphatase 69 U/L (38-126); Aspartate Amino Transferase 27 U/L (14-36); Bilirubin,Total 0.3 mg/dl (0.2-1.3); Blood Urea Nitrogen 8 mg/dl (7-17); Calcium 9.2 mg/dl (8.4-10.2); Carbon Dioxide 27 mmol/L (22.0-30.0); Chloride 104 mmol/L (98-107); Estimated Glomerular Filt Rate 111 ml/min (>60); GFR (African American) 134 ML/MIN (>60); Glucose 92 mg/dl (74-100); Sodium 139 mmol/L (136-145); Total Protein,Serum 7.3 g/dl (6.3-8.2)
[2024-12-02 12:48] LABS: 25-OH Vitamin D, Total 26.3 ng/mL (30-100); Free T4 (Free Thyroxine) 0.87 ng/dl (0.78-2.19)
[2024-12-02 13:03] LABS: Thyroid Stimulating Hormone 1.03 uIU/mL (0.465-4.68)
[2024-12-02 13:27] LABS: Anion Gap 12.2 mEq/L (5-15); Potassium 4.2 mmoL/L (3.5-5.1)
[2024-12-03 08:42] LABS: Thyroid Peroxidase Antibodies 25 IU/mL (0-34)
[2024-12-03 19:42] LABS: Thyroglobulin Level <1.0 IU/mL (0.0-0.9)
[2024-12-11 09:15] LABS: F026-IgE Pork < 0.10 kU/L (Class 0); F027-IgE Beef < 0.10 kU/L (Class 0); F088-IgE Lamb < 0.10 kU/L (Class 0); Immunoglobulin E, Total 47 IU/mL (6-495); O215-IgE Alpha-Gal < 0.10 kU/L (Class 0)
== END 2024-12-02 23:59 | disposition home or self-care (01) ==
LOC: LAB 11:10
PROVIDERS: PCP Family Medicine; Visit Provider Allergy & Immunology
DX: Z00.01 Encounter for general adult medical examination with abnormal findings (principal)
CPT/HCPCS: 36415; 80053; 82306; 82785; 83520; 84439; 84443; 85025; 86003; 86008; 86038; 86352; 86376; 86800

== ENCOUNTER 2024-12-06 07:54 | Emergency (ER) | payer BC, SELFPAY ==
[2024-12-06 08:04] VITALS: BP 122/96; PULSE 100; RESP 15; TEMP 36.6; O2SAT 100; BMI 35.9
--- NOTE | 2024-12-06 08:11 | PC.NURSE ---
Provider currently in room evaluating patient.
--- NOTE | 2024-12-06 08:16 | CT_ITS ---
PROCEDURE INFORMATION: Exam: CT Lumbar Spine Without Contrast Exam date and time: 12/06/2024 8:35 AM Age: 39 years old Clinical indication: Low back pain; Additional info: Lumbar spine pain TECHNIQUE: Imaging protocol: Computed tomography of the lumbar spine without contrast. Radiation optimization: All CT scans at this facility use at least one of these dose optimization techniques: automated exposure control; mA and/or kV adjustment per patient size (includes targeted exams where dose is matched to clinical indication); or iterative reconstruction. COMPARISON: CT BONY PELVIS 11/26/2024 7:05 AM FINDINGS: Bones/joints: No acute fracture. Normal alignment. No significant disc bulge or herniation detectable on CT, although MRI is more sensitive. No severe spinal canal stenosis. No significant osseous neural foraminal narrowing. Moderate bilateral sacroiliitis. Small, 5 mm bone island in the left aspect of the sacrum. Soft tissues: Nonobstructive, 2 mm, bilateral renal interpolar segment stones. IMPRESSION: 1. Moderate bilateral sacroiliitis. 2. Nonobstructive, 2 mm, bilateral renal interpolar segment stones.
--- NOTE | 2024-12-06 08:27 | HMH.EDGENADL ---
Discharge Plan Disposition Patient Disposition: Home, Self-Care Prescriptions Prescriptions: New ibuprofen 800 mg tablet 800 mg PO Q8H PRN (Reason: pain) Qty: 20 0RF methocarbamol 750 mg tablet 750 mg PO Q8H PRN (Reason: back pain) Qty: 90 0RF acetaminophen [Tylenol Extra Strength] 500 mg tablet 1,000 mg PO Q6H PRN (Reason: pain) Qty: 30 0RF No Action cetirizine [Zyrtec] 10 mg tablet 10 mg PO DAILY Qty: 30 0RF dextroamphetamine-amphetamine 10 mg tablet 10 mg PO BID Patient Comments: TAKE 1 TABLET BY MOUTH TWICE DAILY dextroamphetamine-amphetamine 20 mg capsule,extended release 24hr 20 mg PO BID Patient Comments: TAKE 1 CAPSULE BY MOUTH TWICE DAILY Referrals Follow up/Referrals: Filippo Barreto MD [Primary Care Provider] - See instructions Activity Restrictions/Add. Instructions Additional Instructions/Restrictions: You are being prescribed a muscle relaxer to help with your back pain. Use this in addition to the lidocaine patches that you have at home. You are also being prescribed high-dose ibuprofen and Tylenol, take these as prescribed over the next 3 to 4 days as needed for pain relief. Follow-up with your primary care physician in 2 to 3 days if symptoms do not improve. Continue to stretch and move often to avoid your muscles getting stiff, which could prolong your symptoms. If you develop any new or worsening symptoms, such as weakness or numbness in 1 or both of your legs, numbness or tingling in your genital area, inability to urinate or have a bowel movement, or urinating or having bowel movements on yourself uncontrollably, return to the emergency department for evaluation as this may be a medical emergency. Clinical Impressions Clinical Impression: Pain in left lumbar region of back Instructions Patient Instructions: DI for Low Back Pain Print Language Print Language: Irish Discharge ED Provider: Dipesh Stephens Adult [facility] General Chief complaint: Back Pain/Injury Stated complaint: strain-pain lower L back Time Seen by Provider: 12/06/24 08:10 Mode of Arrival: Ambulatory Source of Information: Patient Description of Symptoms (Recalled from ER Triage Doc. by RN): patient states on sunday she was bent over getting something out of the cabinet and when she came back up she felt a sudden pain in her left lower back that wraps around to her LLQ that is sharp and constant. 04/29 pain History of Present Illness HPI narrative: Kim Matias is a 39y female with no significant past medical history who presents to the emergency department for complaints of left lower back pain. Patient states that 3 days ago, she stood up from a squatting position and had sudden pain in the left side of her lower back that intermittently radiates to her left lower abdomen. She states that this pain is sharp in nature. She has been treating it with topical ointments, lidocaine patches and anti-inflammatories at home without significant relief. She states that the pain does not radiate down her leg. She denies any dysuria, hematuria or urinary symptoms at all. She states that she is still able to ambulate however it is painful to do so. She denies any numbness, tingling or weakness. She states that she has not had any difficulties urinating without retention or incontinence. She has not had any fecal incontinence and has had normal bowel movements. She has had no numbness or tingling in her genital area. Related Data Home Medications ?Medication ?Instructions ?Recorded ?Confirmed dextroamphetamine-amphetamine 10 10 mg PO BID 12/06/24 12/06/24 mg tablet dextroamphetamine-amphetamine ER 20 mg PO BID 12/06/24 12/06/24 20 mg 24hr capsule,extend release Previous Rx's ?Medication ?Instructions ?Recorded cetirizine 10 mg tablet (Zyrtec) 10 mg PO DAILY #30 tabs 10/18/24 acetaminophen 500 mg tablet 1,000 mg (2 x 500 mg) PO Q6H PRN 12/06/24 (Tylenol Extra Strength) pain #30 tabs ibuprofen 800 mg tablet 800 mg PO Q8H PRN pain #20 tabs 12/06/24 methocarbamol 750 mg tablet 750 mg PO Q8H PRN back pain #90 12/06/24 tabs Allergies Allergy/AdvReac Type Severity Reaction Status Date / Time kiwi Allergy Severe Swelling Verified 10/24/23 09:38 of Lip/Tongue/Throat almond Allergy Hives Verified 12/06/24 08:25 cashew nut Allergy Hives Verified 12/06/24 08:25 corn Allergy Hives Verified 12/06/24 08:25 hazelnut Allergy Hives Verified 12/06/24 08:25 peanut Allergy Hives Verified 12/06/24 08:25 peas Allergy Hives Verified 12/06/24 08:25 scallops Allergy Hives Verified 12/06/24 08:25 sesame seed Allergy Hives Verified 12/06/24 08:25 soybean Allergy Hives Verified 12/06/24 08:25 tomato Allergy Hives Verified 12/06/24 08:25 walnut Allergy Hives Verified 12/06/24 08:25 wheat Allergy Hives Verified 12/06/24 08:25 [facility] Disclaimer: The information contained in this section may have been updated after the patient was seen, as this information can be updated by other users. Medical History Pelvic pain Narcolepsy Menorrhagia Abnormal uterine bleeding (AUB) Hypersomnia Surgical History History of salpingectomy History of hysterectomy H/O left breast biopsy Hx of dilation and curettage Hx of cone biopsy of cervix History of endometrial ablation Hx of tubal ligation Family History Mother Cancer Other Alcoholism Coronary artery disease Diabetes Hypertension Stroke Social History Smoking Status: Current every day smoker tobacco type: cigarettes and e-cigarettes alcohol intake: never substance use type: denies use current occupational status: employed Travel in the last 8 weeks: None household members: spouse Have you lived/traveled outside [place] in past 30 days?: No Contact w/someone who lives/traveled outside [place] past 30 days?: No Exposure to someone with infectious disease in past 14 days?: No Do you have a fever (greater than 100.4 F or 38 C)?: No Have you tested positive for COVID-19: No Exposed to someone with COVID-19 in past 14 days?: No Do you have a sore throat?: No Do you have a cough?: No Do you have any weakness?: No Do you have any diarrhea?: No Are you experiencing any unusual bleeding?: No Do you have any muscle aches/pain?: No Do you have any abdominal pain?: No Are you experiencing loss of taste or smell?: No Other Medical History Have you received the Flu Vaccine for this season: No Have you received the Pneumonia Vaccine: No ROS Obtained: Yes Systems reviewed as appropriate & no additional complaints except as documented Physical Exam General General appearance: alert and in no apparent distress Comment: Appears uncomfortable Head Head exam: atraumatic Eye Eye exam: Present normal appearance ENT ENT exam: Present normal external ear exam Neck Neck exam: Present full ROM Chest Chest inspection: Present symmetric chest wall rise Respiratory Respiratory exam: Present normal lung sounds bilaterally; Absent respiratory distress Cardiovascular Cardiovascular exam: Present regular rate and normal rhythm Abdominal Exam Abdominal exam: Present soft; Absent tenderness or guarding Extremities Exam Extremities exam: Present normal inspection Back Exam Back exam: Present normal inspection and tenderness (Mid lumbar spine without step-off or deformity and left lumbar paraspinal area. Positive straight leg raise bilaterally. Full strength with hip flexion bilaterally as well as dorsiflexion and plantarflexion bilaterally. Sensation intact to bilateral lower extremities) Neurological Exam Neurological exam: Present alert and oriented X3 Psychiatric Psychiatric exam: Present normal affect Skin Skin exam: Present warm and dry Medical Decision Making Medical Records Screening: Per USPSTF and CDC recommendations, given the prevalence of disease in our region, it is our hospital?s policy to screen for HIV and viral Hepatitis for all patients aged 18 and over and those with ongoing risk factors. Jhony Inquiry Pt receiving controlled substance: No Vital Signs: 12/06/24 08:04 12/06/24 08:33 Temperature 98 F Temperature Source Oral Pulse Rate 72 Pulse Rate [Right] 100 H Respiratory Rate 15 16 Blood Pressure 121/84 Blood Pressure [Right Arm] 122/96 H Blood Pressure Mean [Right Arm] 104 Blood Pressure Source [Right Arm] Automatic Cuff Blood Pressure Position [Right Arm] Sitting 02 Sat by Pulse Oximetry 100 98 Oxygen Delivery Method Room Air Room Air Lab Data Lab Results 12/06/24 08:40: Urine Color Yellow, Urine Appearance Clear, Urine pH 6.5, Ur Specific [place] 1.020, Urine Protein Negative, Urine Glucose (UA) Negative, Urine Ketones Negative, Urine Blood 2+ A, Urine Nitrate Negative, Urine Bilirubin Negative, Urine Urobilinogen 0.2, Ur Leukocyte Esterase Negative, Urine RBC 10-20, Urine WBC None, Ur Squamous Epith Cells 3-5, Urine Bacteria Trace, Urine Mucus Trace Orders (Tests/Meds): ED MEDICATIONS Generic Name Dose Route Start Last Admin Trade Name Freq PRN Reason Stop Dose Admin Methocarbamol 1,500 mg 12/06/24 09:00 12/06/24 08:29 Methocarbamol 500mg Tablet PO 01/05/25 08:59 1,500 mg BID JOHN Administration Discontinued Medications Generic Name Dose Route Start Last Admin Trade Name Jesu PRN Reason Stop Dose Admin Acetaminophen 1,000 mg 12/06/24 08:16 12/06/24 08:29 Acetaminophen 500mg Tab PO 12/06/24 08:17 1,000 mg ONCE ONE Administration Ibuprofen 800 mg 12/06/24 08:17 12/06/24 08:29 Ibuprofen 800 Mg Tablet PO 12/06/24 08:18 800 mg ONCE ONE Administration Lidocaine 1 each 12/06/24 08:16 12/06/24 08:28 Lidocaine 5% Transdermal Patch TD 12/06/24 08:17 1 each ONCE ONE Administration ORDERS Category Date Time Status CT lumbar spine wo con Stat Cat Scan 12/06/24 08:16 Completed HIV Combo Stat Lab 12/06/24 08:13 Ordered Hepatitis C Ab Qual. W/ RFX Stat Lab 12/06/24 08:13 Ordered UA [Urinalysis and Microscopic] Stat Lab 12/06/24 08:40 Completed Medical Decision Narrative: Kim Matias is a 39y female with no significant past medical history who presents to the emergency department for complaints of left lower back pain that is sharp in nature and intermittently radiates to her left lower quadrant. She states that symptoms began 3 days ago after she stood up from a squatting position. She denies any falls or trauma to the area. She has no urinary symptoms and no hematuria. She states that the pain does not radiate down 1 or both of her legs. She has been able to ambulate, however it is painful to do so. She has been taking [id number] medications without significant relief. She has no neurological symptoms, such as numbness, tingling or weakness. No bowel or bladder incontinence or retention. She denies any chest pain or shortness of breath. On arrival, patient is normotensive with blood pressure 122/96, mildly tachycardic with heart rate of 100 bpm, breathing company on room air with oxygen saturation of 100% SpO2. Physical exam, stated above, revealed an uncomfortable but overall well-appearing female in no distress. She has tenderness to palpation in the midline thoracic spine without step-off or deformity. More focal tenderness in the left lumbar paraspinal area. No abdominal tenderness. She has positive straight leg raise bilaterally with pain in the left lumbar paraspinal area with straight leg raise. No neurological deficits with full strength with hip flexion, dorsiflexion and plantarflexion bilaterally. Sensation grossly intact throughout both lower extremities. She does not have any CVA tenderness. Difficult diagnosis includes, but is not limited to: Muscle strain, lumbar spine fracture, UTI, among others. Low concern for cauda equina at this time as patient does not have any weakness, tingling, urinary or bowel incontinence or retention and no saddle anesthesia. Workup in the emergency department included: CT lumbar spine to evaluate any potential spinal fractures. Will obtain urinalysis to rule out urinary tract infection/pyelonephritis. Will treat the patient with multimodal pain control, including 15 mg of oral Robaxin, 800 mg oral ibuprofen, 1000 mg oral Tylenol and lidocaine patch. CT imaging interpreted by me personally and demonstrated no spinal fractures or malalignment. There are bilateral nonobstructing renal calculi. See radiology report for final details Urinalysis demonstrated 2+ blood but no evidence of infection. Patient is to have CVA tenderness there is low concern for pyelonephritis. It is possible that the patient has passed a kidney stone that was in the process of passing a kidney stone but seems less likely given the location of the patient's pain as it is very low on her back and she does not have any CVA tenderness. Low concern for any hydronephrosis or obstructing renal stone at this time. On reassessment, patient remained in stable condition. She had some improvement in her symptoms. Her workup today did not demonstrate any spinal fractures or malalignment. [place] that her symptomatology is best explained by a muscle strain. Recommended multimodal pain control at home with ibuprofen and Tylenol and will prescribe Robaxin. Patient states that she has lidocaine patches at home. Recommended follow-up with her primary care physician in 2 to 3 days if symptoms do not improve. Recommended she stay mobile and stretch frequently to avoid muscle stiffness and prolonging of her symptoms. All questions were answered. Return precautions were provided. She demonstrated understanding and was in agree with this plan. She was then discharged from the emergency department stable condition peer Critical Care Critical Care Time Critical Care Time: No
[2024-12-06] MEDS: LIDOCAINE 5% TRANSDERMAL PATCH 1 EACH TD (08:28)
[2024-12-06] MEDS: METHOCARBAMOL 500MG TABLET 1500 MG PO (08:29)
[2024-12-06] MEDS: IBUPROFEN 800 MG TABLET PO (08:29)
[2024-12-06] MEDS: ACETAMINOPHEN 500MG TAB 1000 MG PO (08:29)
--- NOTE | 2024-12-06 08:32 | PC.NURSE ---
Home medication verified. Allergies verified. Medication administered as documented. Patient now transported to CT scan via w/c with glass technician.
[2024-12-06 08:33] VITALS: BP 121/84; PULSE 72; RESP 16; O2SAT 98
[2024-12-06 08:44] LABS: Microscopic, Urine URINE MICROSCOPIC (MICROSCOPIC)
[2024-12-06 08:49] LABS: Appearance,Urine CLEAR (Clear); Bilirubin,Urine Negative (Negative); Blood, Urine 2+ (Negative); Color,Urine YELLOW (Yellow); Glucose,Urine (UA) Negative (Negative); Ketones,Urine Negative (Negative); Leukocyte Esterase,Urine Negative (Negative); Nitrate,Urine Negative (Negative); PH,Urine 6.5 (5.0-8.5); Protein,Urine Negative (Negative); Urobilinogen,Urine 0.2 EU/dl (0.2)
[2024-12-06 08:56] LABS: Bacteria,Urine Trace /lpf; Mucus,Urine Trace /lpf
--- NOTE | 2024-12-06 09:02 | PC.NURSE ---
Pain reassessed and as documented. Patient states, It's going down. Rates the pain a 6/10; states it was originally 9/10. Semi-fowlers atop stretcher. Voices no questions or concerns at this time. Urinalysis reviewed by RN at this time.
--- NOTE | 2024-12-06 09:31 | PC.NURSE ---
The following note was hand written by this RN on the patient's discharge instructions: Please remove the LidoDerm patch from your left lower back by 08:30 PM.
[2024-12-06 09:35] VITALS: BP 108/75; PULSE 76; RESP 16; TEMP 36.8; O2SAT 99
== END 2024-12-06 09:39 | disposition home or self-care (01) ==
PROVIDERS: Emergency Provider Student in an Organized Health Care Education/Training Program; PCP Family Medicine
DX: M54.50 Low back pain, unspecified (principal)
CPT/HCPCS: 72131; 81001; 99284